=== PATIENT | male | born 1930 | race Caucasian/White ===

== ENCOUNTER 2020-06-03 09:35 | Inpatient (IN) | payer OTHER, BC ==
[2020-06-03] MEDS ORDERED: SODIUM CHLORIDE 0.9% 500 ML INFUS.BAG IV ONE (10:43)
[2020-06-03 11:32] LABS: BASO % 0.4 % (0-2.0); EOS % 0.2 % (0-4.5); HEMATOCRIT 46.8 % (35.4-49); MCH 33.7 pg (25.7-33.7); MCHC 34.2 g/dl (32.0-35.9); MEAN CELL VOLUME 98.4 fl (80-96); MEAN PLT VOLUME 8.8 fl (7.5-11.1); MONO % 6.7 % (3.8-10.2); NEUT % 86.7 % (42.8-82.8); PLATELET COUNT 247 K/MM3 (134-434); RBC 4.76 M/mm3 (4.00-5.60); RDW 15.5 % (11.9-15.9); WHITE BLOOD COUNT 13.2 K/mm3 (4.0-10.0)
[2020-06-03 11:58] LABS: CHLORIDE 96 mmol/L (98-107); POTASSIUM 4.7 mmol/L (3.5-5.1); SODIUM 131 mmol/L (136-145)
[2020-06-03 12:00] LABS: CALCIUM 9.7 mg/dL (8.5-10.1)
[2020-06-03 12:01] LABS: ANION GAP 5 MMOL/L (8-16); BLOOD UREA NITROGEN 31.7 mg/dL (7-18); CO2 31 mmol/L (21-32); GLUCOSE,RANDOM 167 mg/dL (74-106); MAGNESIUM 1.9 mg/dL (1.8-2.4)
[2020-06-03 12:04] LABS: CREATININE 1.4 mg/dL (0.55-1.3); SGOT/AST 16 U/L (15-37); SGPT/ALT 34 U/L (13-61)
[2020-06-03 12:06] LABS: BILIRUBIN,TOTAL 1.3 mg/dL (0.2-1); TOT PROT 7.4 g/dl (6.4-8.2)
[2020-06-03 12:07] LABS: ALK PHOS 74 U/L (45-117)
[2020-06-03 15:31] LABS: PH,URINE 5.5 (5.0-8.0); URINE APPEARANCE CLEAR; URINE BILIRUBIN NEGATIVE (NEGATIVE); URINE COLOR YELLOW; URINE GLUCOSE (UA) NEGATIVE (NEGATIVE); URINE KETONE NEGATIVE (NEGATIVE); URINE LEUK ESTERASE NEGATIVE (NEGATIVE); URINE NITRITE NEGATIVE (NEGATIVE); URINE PROTEIN NEGATIVE (NEGATIVE)
[2020-06-03] MEDS ORDERED: ALBUTEROL SO4 HFA INHALER IH PRN (18:29)
[2020-06-03] MEDS: ATORVASTATIN CA 40 MG TABLET (FP) PO SCH (22:33)
[2020-06-03] MEDS: INSULIN SLIDING SCALE (NOVOLOG) 1 VIAL SQ SCH (22:35)
[2020-06-04] MEDS: INSULIN SLIDING SCALE (NOVOLOG) 1 VIAL SQ SCH ×4 (06:07→21:16)
[2020-06-04 08:20] LABS: POTASSIUM 3.9 mmol/L (3.5-5.1)
[2020-06-04 08:24] LABS: BASO % 0.7 % (0-2.0); EOS % 1.8 % (0-4.5); HEMATOCRIT 42.1 % (35.4-49); HEMOGLOBIN 14.5 GM/dL (11.7-16.9); LYMPH % 9.1 % (8-40); MCH 33.5 pg (25.7-33.7); MCHC 34.4 g/dl (32.0-35.9); MEAN CELL VOLUME 97.2 fl (80-96); MEAN PLT VOLUME 8.6 fl (7.5-11.1); MONO % 8.4 % (3.8-10.2); PLATELET COUNT 198 K/MM3 (134-434); RBC 4.33 M/mm3 (4.00-5.60); RDW 15.4 % (11.9-15.9); WHITE BLOOD COUNT 11.7 K/mm3 (4.0-10.0)
[2020-06-04 08:25] LABS: BLOOD UREA NITROGEN 25.8 mg/dL (7-18); MAGNESIUM 1.9 mg/dL (1.8-2.4)
[2020-06-04] MEDS: metoPROLOL SUCCINATE 25 MG TAB.SR.24H (FP) PO SCH (11:42)
[2020-06-04] MEDS: MULTIVITAMINS THER W-MINERALS COMBO TABLET (FP) PO SCH (11:42)
[2020-06-04] MEDS: CHOLECALCIFEROL (VIT D3) 1,000 UNIT (25 MCG) TABLET PO SCH (11:42)
[2020-06-04 13:26] LABS: INR 1.02 (0.83-1.09); PROTHROMBIN TIME (PATIENT) 12.3 SEC (9.7-13.0)
[2020-06-04 13:29] LABS: ACTIVATED PTT 26.9 SECONDS (25.2-36.5)
[2020-06-04] MEDS ORDERED: PCA PUMP NR ONE (14:52)
[2020-06-04] MEDS: SODIUM CHLORIDE 1,000 ML IV SCH (17:18)
[2020-06-04] MEDS: ATORVASTATIN CA 40 MG TABLET (FP) PO SCH (21:14)
[2020-06-05] MEDS ORDERED: HALOPERIDOL 2 MG TABLET PO ONE (01:14)
[2020-06-05] MEDS: SODIUM CHLORIDE 1,000 ML IV SCH (05:58)
[2020-06-05] MEDS: INSULIN SLIDING SCALE (NOVOLOG) 1 VIAL SQ SCH ×3 (06:41→17:44)
[2020-06-05 07:50] LABS: BASO % 0.8 % (0-2.0); EOS % 2.3 % (0-4.5); HEMATOCRIT 40.9 % (35.4-49); HEMOGLOBIN 14.2 GM/dL (11.7-16.9); LYMPH % 8.6 % (8-40); MCH 33.8 pg (25.7-33.7); MCHC 34.7 g/dl (32.0-35.9); MEAN CELL VOLUME 97.6 fl (80-96); MEAN PLT VOLUME 8.4 fl (7.5-11.1); MONO % 8.3 % (3.8-10.2); PLATELET COUNT 189 K/MM3 (134-434); RBC 4.19 M/mm3 (4.00-5.60); RDW 15.1 % (11.9-15.9); WHITE BLOOD COUNT 11.3 K/mm3 (4.0-10.0)
[2020-06-05 08:07] LABS: POTASSIUM 4.5 mmol/L (3.5-5.1)
[2020-06-05 08:22] LABS: CALCIUM 8.5 mg/dL (8.5-10.1)
[2020-06-05 08:23] LABS: BLOOD UREA NITROGEN 22.2 mg/dL (7-18)
[2020-06-05 08:26] LABS: PHOSPHOROUS 2.7 mg/dL (2.5-4.9)
[2020-06-05] MEDS: CHOLECALCIFEROL (VIT D3) 1,000 UNIT (25 MCG) TABLET PO SCH (09:14)
[2020-06-05] MEDS: MULTIVITAMINS THER W-MINERALS COMBO TABLET (FP) PO SCH (09:14)
[2020-06-05] MEDS ORDERED: PT OWN MED DRAWER 7, Y5N ONE (09:30)
[2020-06-05] MEDS: metoPROLOL SUCCINATE 25 MG TAB.SR.24H (FP) PO SCH (10:03)
[2020-06-05] MEDS: traMADol HCL 50 MG TABLET PO PRN (17:57)
[2020-06-05] MEDS ORDERED: RIVAROXABAN 20 MG TABLET PO SCH (18:00)
[2020-06-05 19:10] VITALS: BMI 26.4
[2020-06-05] MEDS: ATORVASTATIN CA 40 MG TABLET (FP) PO SCH (21:18)
[2020-06-05] MEDS: ACETAMINOPHEN 325 MG TABLET (FP) PO PRN (21:19)
[2020-06-05] MEDS: HEPARIN NA (PORCINE) 5,000 UNITS/ML 1ML VIAL SQ SCH (21:19)
[2020-06-05] MEDS ORDERED: MELATONIN 5 MG TABLETS PO ONE (23:06)
[2020-06-06] MEDS: HEPARIN NA (PORCINE) 5,000 UNITS/ML 1ML VIAL SQ SCH (05:58)
[2020-06-06] MEDS: INSULIN SLIDING SCALE (NOVOLOG) 1 VIAL SQ SCH ×3 (06:01→16:30)
[2020-06-06 08:24] LABS: BASO % 0.8 % (0-2.0); EOS % 2.1 % (0-4.5); HEMATOCRIT 40.8 % (35.4-49); MCH 33.9 pg (25.7-33.7); MCHC 34.2 g/dl (32.0-35.9); MEAN CELL VOLUME 99.1 fl (80-96); MEAN PLT VOLUME 8.9 fl (7.5-11.1); NEUT % 79.1 % (42.8-82.8); PLATELET COUNT 184 K/MM3 (134-434); RBC 4.12 M/mm3 (4.00-5.60); RDW 15.3 % (11.9-15.9); WHITE BLOOD COUNT 9.7 K/mm3 (4.0-10.0)
[2020-06-06 08:27] LABS: POTASSIUM 4.5 mmol/L (3.5-5.1)
[2020-06-06 08:41] LABS: BLOOD UREA NITROGEN 23.6 mg/dL (7-18); CALCIUM 8.6 mg/dL (8.5-10.1); MAGNESIUM 2.1 mg/dL (1.8-2.4)
[2020-06-06 08:44] LABS: CREATININE 0.9 mg/dL (0.55-1.3)
[2020-06-06 08:45] LABS: PHOSPHOROUS 2.9 mg/dL (2.5-4.9)
[2020-06-06] MEDS: MULTIVITAMINS THER W-MINERALS COMBO TABLET (FP) PO SCH (09:18)
[2020-06-06] MEDS: CHOLECALCIFEROL (VIT D3) 1,000 UNIT (25 MCG) TABLET PO SCH (09:18)
[2020-06-06] MEDS: metoPROLOL SUCCINATE 25 MG TAB.SR.24H (FP) PO SCH (09:18)
[2020-06-06] MEDS: LOSARTAN POTASSIUM 50 MG TABLET PO SCH (09:19)
[2020-06-06] MEDS: DOCUSATE SODIUM 100 MG CAPSULE (FP) PO SCH (15:02)
[2020-06-06] MEDS: RIVAROXABAN 20 MG TABLET PO SCH (19:11)
[2020-06-06] MEDS: MELATONIN 5 MG TABLETS PO PRN (21:45)
[2020-06-06] MEDS: ATORVASTATIN CA 40 MG TABLET (FP) PO SCH (21:45)
[2020-06-07] MEDS: INSULIN SLIDING SCALE (NOVOLOG) 1 VIAL SQ SCH ×3 (06:08→17:39)
[2020-06-07] MEDS: MULTIVITAMINS THER W-MINERALS COMBO TABLET (FP) PO SCH (09:01)
[2020-06-07] MEDS: metoPROLOL SUCCINATE 25 MG TAB.SR.24H (FP) PO SCH (09:01)
[2020-06-07] MEDS: LOSARTAN POTASSIUM 50 MG TABLET PO SCH (09:01)
[2020-06-07] MEDS: DOCUSATE SODIUM 100 MG CAPSULE (FP) PO SCH (09:02)
[2020-06-07] MEDS: CHOLECALCIFEROL (VIT D3) 1,000 UNIT (25 MCG) TABLET PO SCH (09:02)
[2020-06-07] MEDS: ACETAMINOPHEN 325 MG TABLET (FP) PO PRN (09:02)
[2020-06-07] MEDS: traMADol HCL 50 MG TABLET PO PRN (13:50)
[2020-06-07] MEDS: RIVAROXABAN 20 MG TABLET PO SCH (17:39)
[2020-06-07] MEDS: ATORVASTATIN CA 40 MG TABLET (FP) PO SCH (21:01)
[2020-06-07] MEDS: MELATONIN 5 MG TABLETS PO PRN (21:01)
[2020-06-08] MEDS: INSULIN SLIDING SCALE (NOVOLOG) 1 VIAL SQ SCH ×3 (06:03→16:54)
[2020-06-08] MEDS: ACETAMINOPHEN 325 MG TABLET (FP) PO PRN ×2 (09:47→21:23)
[2020-06-08] MEDS: DOCUSATE SODIUM 100 MG CAPSULE (FP) PO SCH (09:48)
[2020-06-08] MEDS: metoPROLOL SUCCINATE 25 MG TAB.SR.24H (FP) PO SCH (09:48)
[2020-06-08] MEDS: CHOLECALCIFEROL (VIT D3) 1,000 UNIT (25 MCG) TABLET PO SCH (09:48)
[2020-06-08] MEDS: LOSARTAN POTASSIUM 50 MG TABLET PO SCH (09:48)
[2020-06-08] MEDS: MULTIVITAMINS THER W-MINERALS COMBO TABLET (FP) PO SCH (09:48)
[2020-06-08] MEDS ORDERED: INSULIN (NOVOLOG) ASPART 100 UNITS/ML 10ML VIAL ONE (11:00)
[2020-06-08] MEDS ORDERED: SODIUM PHOSPHATE/NA BIPHOS 133 ML ENEMA PR ONE (11:39)
[2020-06-08] MEDS: traMADol HCL 50 MG TABLET PO PRN (15:20)
[2020-06-08] MEDS: RIVAROXABAN 20 MG TABLET PO SCH (17:33)
[2020-06-08] MEDS: ATORVASTATIN CA 40 MG TABLET (FP) PO SCH (21:24)
[2020-06-09] MEDS: MELATONIN 5 MG TABLETS PO PRN ×2 (02:02→23:28)
[2020-06-09] MEDS: INSULIN SLIDING SCALE (NOVOLOG) 1 VIAL SQ SCH ×3 (06:31→17:19)
[2020-06-09 08:51] LABS: HEMATOCRIT 44.5 % (35.4-49); HEMOGLOBIN 15.1 GM/dL (11.7-16.9); MCH 33.6 pg (25.7-33.7); MEAN CELL VOLUME 98.9 fl (80-96); MEAN PLT VOLUME 8.7 fl (7.5-11.1); PLATELET COUNT 207 K/MM3 (134-434); RBC 4.49 M/mm3 (4.00-5.60); RDW 15.2 % (11.9-15.9); WHITE BLOOD COUNT 11.2 K/mm3 (4.0-10.0)
[2020-06-09 08:58] LABS: POTASSIUM 4.7 mmol/L (3.5-5.1)
[2020-06-09 09:01] LABS: BLOOD UREA NITROGEN 14.2 mg/dL (7-18); CALCIUM 9.4 mg/dL (8.5-10.1); MAGNESIUM 2.2 mg/dL (1.8-2.4)
[2020-06-09 09:05] LABS: CREATININE 0.8 mg/dL (0.55-1.3)
[2020-06-09] MEDS: metoPROLOL SUCCINATE 25 MG TAB.SR.24H (FP) PO SCH (09:22)
[2020-06-09] MEDS: ACETAMINOPHEN 325 MG TABLET (FP) PO PRN (09:22)
[2020-06-09] MEDS: LOSARTAN POTASSIUM 50 MG TABLET PO SCH (09:22)
[2020-06-09] MEDS: MULTIVITAMINS THER W-MINERALS COMBO TABLET (FP) PO SCH (09:23)
[2020-06-09] MEDS: DOCUSATE SODIUM 100 MG CAPSULE (FP) PO SCH (09:23)
[2020-06-09] MEDS: CHOLECALCIFEROL (VIT D3) 1,000 UNIT (25 MCG) TABLET PO SCH (09:23)
[2020-06-09] MEDS: TAMSULOSIN HCL 0.4 MG CAP PO SCH (09:23)
[2020-06-09] MEDS ORDERED: traMADol HCL 50 MG TABLET PO ONE (10:00)
[2020-06-09] MEDS: oxyCODONE HCL 5 MG TABLET PO PRN (12:06)
[2020-06-09] MEDS: GABAPENTIN 100 MG CAPSULE PO PRN (12:06)
[2020-06-09] MEDS: RIVAROXABAN 20 MG TABLET PO SCH (17:36)
[2020-06-09] MEDS: SENNOSIDES 8.6MG TABLET (FP) PO SCH (22:46)
[2020-06-09] MEDS: ATORVASTATIN CA 40 MG TABLET (FP) PO SCH (22:46)
[2020-06-10] MEDS: oxyCODONE HCL 5 MG TABLET PO PRN ×2 (02:01→09:23)
[2020-06-10] MEDS: GABAPENTIN 100 MG CAPSULE PO PRN ×2 (02:01→09:23)
[2020-06-10] MEDS: INSULIN SLIDING SCALE (NOVOLOG) 1 VIAL SQ SCH ×3 (06:31→16:34)
[2020-06-10 07:59] LABS: BASO % 0.8 % (0-2.0); EOS % 1.5 % (0-4.5); LYMPH % 7.8 % (8-40); MCH 33.7 pg (25.7-33.7); MCHC 34.9 g/dl (32.0-35.9); MEAN CELL VOLUME 96.7 fl (80-96); MEAN PLT VOLUME 8.4 fl (7.5-11.1); MONO % 6.2 % (3.8-10.2); NEUT % 83.7 % (42.8-82.8); PLATELET COUNT 187 K/MM3 (134-434); RBC 4.14 M/mm3 (4.00-5.60); RDW 14.7 % (11.9-15.9); WHITE BLOOD COUNT 11.4 K/mm3 (4.0-10.0)
[2020-06-10 08:19] LABS: POTASSIUM 4.2 mmol/L (3.5-5.1)
[2020-06-10 08:24] LABS: BLOOD UREA NITROGEN 13.3 mg/dL (7-18); CALCIUM 8.8 mg/dL (8.5-10.1)
[2020-06-10 08:28] LABS: CREATININE 0.8 mg/dL (0.55-1.3)
[2020-06-10] MEDS: metoPROLOL SUCCINATE 25 MG TAB.SR.24H (FP) PO SCH (09:23)
[2020-06-10] MEDS: SENNOSIDES 8.6MG TABLET (FP) PO SCH ×2 (09:23→21:53)
[2020-06-10] MEDS: LOSARTAN POTASSIUM 50 MG TABLET PO SCH (09:23)
[2020-06-10] MEDS: MULTIVITAMINS THER W-MINERALS COMBO TABLET (FP) PO SCH (09:23)
[2020-06-10] MEDS: DOCUSATE SODIUM 100 MG CAPSULE (FP) PO SCH (09:23)
[2020-06-10] MEDS: TAMSULOSIN HCL 0.4 MG CAP PO SCH (09:23)
[2020-06-10] MEDS: CHOLECALCIFEROL (VIT D3) 1,000 UNIT (25 MCG) TABLET PO SCH (09:23)
[2020-06-10] MEDS: ACETAMINOPHEN 325 MG TABLET (FP) PO PRN ×2 (13:52→21:52)
[2020-06-10] MEDS ORDERED: SODIUM CHLORIDE 1,000 ML IV SCH (14:00)
[2020-06-10] MEDS ORDERED: diphenhydrAMINE HCL 25 MG CAPSULE (FP) PO PRN (16:16)
[2020-06-10] MEDS: LIDOCAINE 5% TOPICAL PATCH TP SCH (16:34)
[2020-06-10] MEDS: RIVAROXABAN 20 MG TABLET PO SCH (17:31)
[2020-06-10] MEDS: GABAPENTIN 100 MG CAPSULE PO SCH (21:52)
[2020-06-10] MEDS: ATORVASTATIN CA 40 MG TABLET (FP) PO SCH (21:52)
[2020-06-10] MEDS: LIDOCAINE PATCH REMOVAL MC SCH (21:57)
[2020-06-11] MEDS: oxyCODONE HCL 5 MG TABLET PO PRN (04:08)
[2020-06-11] MEDS: INSULIN SLIDING SCALE (NOVOLOG) 1 VIAL SQ SCH ×3 (06:50→17:01)
[2020-06-11 07:46] LABS: BASO % 1.1 % (0-2.0); EOS % 2.3 % (0-4.5); HEMATOCRIT 41.1 % (35.4-49); HEMOGLOBIN 14.5 GM/dL (11.7-16.9); LYMPH % 9.5 % (8-40); MCH 33.8 pg (25.7-33.7); MCHC 35.2 g/dl (32.0-35.9); MEAN CELL VOLUME 95.9 fl (80-96); MEAN PLT VOLUME 8.4 fl (7.5-11.1); MONO % 8.3 % (3.8-10.2); NEUT % 78.8 % (42.8-82.8); PLATELET COUNT 211 K/MM3 (134-434); RBC 4.29 M/mm3 (4.00-5.60); RDW 14.9 % (11.9-15.9); WHITE BLOOD COUNT 10.6 K/mm3 (4.0-10.0)
[2020-06-11 08:01] LABS: POTASSIUM 4.4 mmol/L (3.5-5.1)
[2020-06-11 08:03] LABS: CALCIUM 8.8 mg/dL (8.5-10.1)
[2020-06-11 08:04] LABS: BLOOD UREA NITROGEN 13.9 mg/dL (7-18)
[2020-06-11 08:07] LABS: CREATININE 0.9 mg/dL (0.55-1.3)
[2020-06-11] MEDS ORDERED: SODIUM PHOSPHATE/NA BIPHOS 133 ML ENEMA PR ONE (08:52)
[2020-06-11] MEDS: LIDOCAINE 5% TOPICAL PATCH TP SCH (10:08)
[2020-06-11] MEDS: GABAPENTIN 100 MG CAPSULE PO SCH ×2 (10:12→21:10)
[2020-06-11] MEDS: CHOLECALCIFEROL (VIT D3) 1,000 UNIT (25 MCG) TABLET PO SCH (10:13)
[2020-06-11] MEDS: TAMSULOSIN HCL 0.4 MG CAP PO SCH (10:13)
[2020-06-11] MEDS: ACETAMINOPHEN 325 MG TABLET (FP) PO PRN ×2 (10:13→17:37)
[2020-06-11] MEDS: metoPROLOL SUCCINATE 25 MG TAB.SR.24H (FP) PO SCH (10:13)
[2020-06-11] MEDS: MULTIVITAMINS THER W-MINERALS COMBO TABLET (FP) PO SCH (10:13)
[2020-06-11] MEDS: LOSARTAN POTASSIUM 50 MG TABLET PO SCH (10:15)
[2020-06-11] MEDS: DOCUSATE SODIUM 100 MG CAPSULE (FP) PO SCH (10:15)
[2020-06-11] MEDS: SENNOSIDES 8.6MG TABLET (FP) PO SCH ×2 (10:15→21:10)
[2020-06-11] MEDS: METHYL SALICYLATE/MENTHOL OINT 30 GM TUBE TP SCH ×2 (11:48→21:10)
[2020-06-11] MEDS: SODIUM CHLORIDE 1,000 ML IV SCH (17:37)
[2020-06-11] MEDS: RIVAROXABAN 20 MG TABLET PO SCH (17:38)
[2020-06-11] MEDS ORDERED: INSULIN (NOVOLOG) ASPART 100 UNITS/ML 10ML VIAL ONE (20:56)
[2020-06-11] MEDS: ATORVASTATIN CA 40 MG TABLET (FP) PO SCH (21:10)
[2020-06-11] MEDS: LIDOCAINE PATCH REMOVAL MC SCH (21:12)
[2020-06-12] MEDS: oxyCODONE HCL 5 MG TABLET PO PRN ×2 (04:11→08:22)
[2020-06-12] MEDS: INSULIN SLIDING SCALE (NOVOLOG) 1 VIAL SQ SCH ×3 (06:12→17:17)
[2020-06-12] MEDS: SODIUM CHLORIDE 1,000 ML IV SCH (06:57)
[2020-06-12 08:04] LABS: BASO % 1.1 % (0-2.0); EOS % 1.6 % (0-4.5); HEMATOCRIT 39.1 % (35.4-49); HEMOGLOBIN 13.6 GM/dL (11.7-16.9); LYMPH % 8.5 % (8-40); MCH 33.6 pg (25.7-33.7); MCHC 34.8 g/dl (32.0-35.9); MEAN CELL VOLUME 96.5 fl (80-96); MEAN PLT VOLUME 8.5 fl (7.5-11.1); MONO % 8.2 % (3.8-10.2); NEUT % 80.6 % (42.8-82.8); PLATELET COUNT 189 K/MM3 (134-434); RBC 4.06 M/mm3 (4.00-5.60); RDW 14.5 % (11.9-15.9); WHITE BLOOD COUNT 10.6 K/mm3 (4.0-10.0)
[2020-06-12] MEDS: ACETAMINOPHEN 325 MG TABLET (FP) PO PRN (08:23)
[2020-06-12 08:24] LABS: POTASSIUM 4.1 mmol/L (3.5-5.1)
[2020-06-12 08:26] LABS: CALCIUM 8.3 mg/dL (8.5-10.1)
[2020-06-12 08:28] LABS: BLOOD UREA NITROGEN 12.2 mg/dL (7-18)
[2020-06-12 08:31] LABS: BILIRUBIN,TOTAL 0.8 mg/dL (0.2-1); CREATININE 0.7 mg/dL (0.55-1.3)
[2020-06-12 08:33] LABS: TOT PROT 5.9 g/dl (6.4-8.2)
[2020-06-12] MEDS: LIDOCAINE 5% TOPICAL PATCH TP SCH (10:26)
[2020-06-12] MEDS: TAMSULOSIN HCL 0.4 MG CAP PO SCH (10:28)
[2020-06-12] MEDS: metoPROLOL SUCCINATE 25 MG TAB.SR.24H (FP) PO SCH (10:28)
[2020-06-12] MEDS: CHOLECALCIFEROL (VIT D3) 1,000 UNIT (25 MCG) TABLET PO SCH (10:28)
[2020-06-12] MEDS: GABAPENTIN 100 MG CAPSULE PO SCH (10:28)
[2020-06-12] MEDS: MULTIVITAMINS THER W-MINERALS COMBO TABLET (FP) PO SCH (10:28)
[2020-06-12] MEDS: SENNOSIDES 8.6MG TABLET (FP) PO SCH (10:29)
[2020-06-12] MEDS: LOSARTAN POTASSIUM 50 MG TABLET PO SCH (10:29)
[2020-06-12] MEDS: METHYL SALICYLATE/MENTHOL OINT 30 GM TUBE TP SCH (10:29)
[2020-06-12] MEDS: DOCUSATE SODIUM 100 MG CAPSULE (FP) PO SCH (10:30)
[2020-06-12] MEDS ORDERED: INSULIN (NOVOLOG) ASPART 100 UNITS/ML 10ML VIAL ONE (11:54)
[2020-06-12] MEDS: RIVAROXABAN 20 MG TABLET PO SCH (17:18)
[2020-06-12 20:12] VITALS: BP 148/70; PULSE 75; TEMP 98.1
== END 2020-06-12 20:13 | disposition home or self-care (01) | DRG 180 ==
LOC: JER 09:35 → JERBED 16:40 → J7W 21:26
PROVIDERS: ATTEND Internal Medicine
PROC: 0BBC3ZX Excision of Right Upper Lung Lobe, Percutaneous Approach, Diagnostic (ICD-10-PCS; principal; 2020-06-05)
PROC: 0W9930Z Drainage of Right Pleural Cavity with Drainage Device, Percutaneous Approach (ICD-10-PCS; 2020-06-05)
DX: C34.11 Malignant neoplasm of upper lobe, right bronchus or lung (principal); E43 Unspecified severe protein-calorie malnutrition; N17.9 Acute kidney failure, unspecified; J95.811 Postprocedural pneumothorax; I87.1 Compression of vein; E87.1 Hypo-osmolality and hyponatremia; G90.2 Horner's syndrome; J43.9 Emphysema, unspecified; R63.0 Anorexia; R63.4 Abnormal weight loss; I48.0 Paroxysmal atrial fibrillation; I10 Essential (primary) hypertension; E78.5 Hyperlipidemia, unspecified; E11.9 Type 2 diabetes mellitus without complications; I73.9 Peripheral vascular disease, unspecified; K42.9 Umbilical hernia without obstruction or gangrene; I71.4 Abdominal aortic aneurysm, without rupture; N40.0 Benign prostatic hyperplasia without lower urinary tract symptoms; K59.00 Constipation, unspecified; G47.00 Insomnia, unspecified; R09.02 Hypoxemia; Y83.9 Surgical procedure, unspecified as the cause of abnormal reaction of the patient, or of later complication, without mention of misadventure at the time of the procedure; D72.829 Elevated white blood cell count, unspecified
CPT/HCPCS: 32408; 32557; 36415; 70450-TC; 70553-TC; 71045-TC-FY; 71046-TC-FY; 71250-TC; 71275-TC; 74177-TC; 77012-TC; 80048; 80053; 81003; 82436; 82550; 82962; 83036; 83735; 83930; 83935; 84100; 84133; 84153; 84300; 84443; 84484; 85025; 85027; 85610; 85730; 88305-TC; 88341-TC; 93005; 93010; 93306-TC; 93971; 94761; 97116-GP; 97161-GP; 99285-25; A9579; C9803; J1644; Q9967; U0003

== ENCOUNTER 2020-06-17 04:37 | Day surgery (SDC) | payer OTHER, BC ==
[2020-06-16 10:07] VITALS: BMI 26.6
[2020-06-17] MEDS ORDERED: ceFAZolin SODIUM 1 GM VIAL ONE (14:21)
[2020-06-17] MEDS ORDERED: PROPOFOL 20 ML ONE ×2 (14:21→14:52)
[2020-06-17] MEDS ORDERED: ceFAZolin 2 GRAM PREMIX BAG IVPB ONE (14:22)
[2020-06-17] MEDS ORDERED: ONDANSETRON 4 MG/2 ML VIAL IVPUSH PRN (14:29)
[2020-06-17] MEDS ORDERED: LIDOCAINE HCL 1%, 10 MG/ML (50 mL VIAL) INF ONE ×2 (14:37)
[2020-06-17 17:36] VITALS: BP 126/69; PULSE 81; TEMP 96.6
== END 2020-06-17 17:35 | disposition home or self-care (01) ==
LOC: JASU-SURG 04:37
PROVIDERS: ATTEND Surgery Vascular Surgery
PROC: B548ZZA Ultrasonography of Superior Vena Cava, Guidance (ICD-10-PCS; 2020-06-17)
PROC: 02HV33Z Insertion of Infusion Device into Superior Vena Cava, Percutaneous Approach (ICD-10-PCS; principal; 2020-06-17 15:00)
DX: C34.90 Malignant neoplasm of unspecified part of unspecified bronchus or lung (principal); E11.9 Type 2 diabetes mellitus without complications; I10 Essential (primary) hypertension
CPT/HCPCS: 36561; C1788; 71045-TC-FY; 94760; J1644

== ENCOUNTER 2020-06-24 08:22 | Day surgery (SDC) | payer OTHER, BC ==
[2020-06-24] MEDS ORDERED: SODIUM CHLORIDE 1,000 ML IV ONE (09:30)
[2020-06-24] MEDS ORDERED: DEXAMETHASONE SODIUM PHOSPHATE 10 MG, DIPHENHYDRAMINE 25 MG in SODIUM CHLORIDE 100 ML IVPB ONE (09:30)
[2020-06-24 09:34] LABS: BASO % 0.2 % (0-2.0); EOS % 1.1 % (0-4.5); HEMATOCRIT 38.3 % (35.4-49); HEMOGLOBIN 13.3 GM/dL (11.7-16.9); LYMPH % 7.2 % (8-40); MCHC 34.7 g/dl (32.0-35.9); MEAN PLT VOLUME 8.3 fl (7.5-11.1); NEUT % 85.5 % (42.8-82.8); PLATELET COUNT 194 K/MM3 (134-434); RBC 3.91 M/mm3 (4.00-5.60); RDW 15.5 % (11.9-15.9); WHITE BLOOD COUNT 10.2 K/mm3 (4.0-10.0)
[2020-06-24 09:39] LABS: INR 2.65 (0.83-1.09); PROTHROMBIN TIME (PATIENT) 31.2 SEC (9.7-13.0)
[2020-06-24 09:41] LABS: ACTIVATED PTT 55.1 SECONDS (25.2-36.5)
[2020-06-24] MEDS ORDERED: PALONOSETRON HCL 0.25 MG/5 ML VIAL IVPUSH ONE (10:00)
[2020-06-24] MEDS ORDERED: DEXAMETHASONE SODIUM PHOSPHATE 10 MG, DIPHENHYDRAMINE 50 MG in SODIUM CHLORIDE 100 ML IVPB ONE (10:00)
[2020-06-24] MEDS ORDERED: FAMOTIDINE 20 MG/50 ML IVPB 20 MG/50 ML MG IVPB ONE (10:00)
[2020-06-24] MEDS ORDERED: PACLITAXEL 90 MG in SODIUM CHLORIDE 250 ML IVPB ONE (10:30)
[2020-06-24 10:34] LABS: ALBUMIN 3.2 g/dl (3.4-5.0); BILIRUBIN,TOTAL 0.7 mg/dL (0.2-1); BLOOD UREA NITROGEN 22.3 mg/dL (7-18); CALCIUM 9.4 mg/dL (8.5-10.1); CREATININE 0.9 mg/dL (0.55-1.3); MAGNESIUM 2.1 mg/dL (1.8-2.4); POTASSIUM 4.1 mmol/L (3.5-5.1); TOT PROT 6.4 g/dl (6.4-8.2)
[2020-06-24] MEDS ORDERED: CARBOPLATIN IVPB ONE ×2 (11:00→12:15)
[2020-06-24] MEDS ORDERED: SODIUM CHLORIDE IVPB ONE ×2 (11:00→12:15)
[2020-06-24] MEDS ORDERED: ACETAMINOPHEN 325 MG TABLET (FP) PO ONE (12:30)
[2020-06-24 17:24] VITALS: BP 118/60; PULSE 77; TEMP 98.3
[2020-06-24] MEDS ORDERED: PORTA CATH FLUSH 10 ML IVPUSH ONE (17:24)
== END 2020-06-24 15:00 | disposition home or self-care (01) ==
LOC: JONCCHEMO 08:22
PROVIDERS: ATTEND Internal Medicine Hematology & Oncology
DX: Z51.11 Encounter for antineoplastic chemotherapy (principal); C34.90 Malignant neoplasm of unspecified part of unspecified bronchus or lung
CPT/HCPCS: 36415; 80053; 83735; 85025; 85610; 85730; 96361; 96367; 96375; 96413; 96415; 96417; J2469

== ENCOUNTER 2020-07-03 07:07 | Day surgery (SDC) | payer OTHER, BC ==
[2020-07-03] MEDS ORDERED: PALONOSETRON HCL 0.25 MG/5 ML VIAL IVPUSH ONE (10:00)
[2020-07-03] MEDS ORDERED: DEXAMETHASONE SODIUM PHOSPHATE 10 MG, DIPHENHYDRAMINE 50 MG in SODIUM CHLORIDE 100 ML IVPB ONE (10:00)
[2020-07-03] MEDS ORDERED: FAMOTIDINE 20 MG/50 ML IVPB 20 MG/50 ML MG IVPB ONE (10:00)
[2020-07-03] MEDS ORDERED: PACLITAXEL 90 MG in SODIUM CHLORIDE 250 ML IVPB ONE (10:30)
[2020-07-03 10:55] LABS: BASO % 1.2 % (0-2.0); EOS % 1.6 % (0-4.5); HEMOGLOBIN 12.1 GM/dL (11.7-16.9); LYMPH % 8.3 % (8-40); MCH 33.2 pg (25.7-33.7); MCHC 33.6 g/dl (32.0-35.9); MEAN CELL VOLUME 98.7 fl (80-96); MEAN PLT VOLUME 8.6 fl (7.5-11.1); MONO % 8.5 % (3.8-10.2); NEUT % 80.4 % (42.8-82.8); PLATELET COUNT 205 K/MM3 (134-434); RBC 3.65 M/mm3 (4.00-5.60); RDW 15.8 % (11.9-15.9); WHITE BLOOD COUNT 6.2 K/mm3 (4.0-10.0)
[2020-07-03] MEDS ORDERED: DEXAMETHASONE SOD PHOSPHATE 10 MG/1 ML VIAL IVPB ONE (11:10)
[2020-07-03 11:12] LABS: POTASSIUM 4.5 mmol/L (3.5-5.1)
[2020-07-03 11:15] LABS: ALBUMIN 2.8 g/dl (3.4-5.0); CALCIUM 10.2 mg/dL (8.5-10.1)
[2020-07-03 11:20] LABS: BILIRUBIN,TOTAL 0.8 mg/dL (0.2-1); TOT PROT 6.1 g/dl (6.4-8.2)
[2020-07-03] MEDS ORDERED: SODIUM CHLORIDE 500 ML IV STA (11:24)
[2020-07-03] MEDS ORDERED: SODIUM CHLORIDE 500 ML IV ONE (11:25)
[2020-07-03] MEDS ORDERED: CARBOPLATIN IVPB ONE (11:30)
[2020-07-03] MEDS ORDERED: DEXAMETHASONE SODIUM PHOSPHATE 10 MG, DIPHENHYDRAMINE 25 MG in SODIUM CHLORIDE 100 ML IVPB ONE (11:30)
[2020-07-03] MEDS ORDERED: SODIUM CHLORIDE IVPB ONE (11:30)
[2020-07-03] MEDS ORDERED: DEXAMETHASONE SODIUM PHOSPHATE 10 MG in SODIUM CHLORIDE 50 ML IVPB ONE (11:33)
[2020-07-03 17:53] VITALS: BP 120/73; PULSE 75; TEMP 98
[2020-07-03] MEDS ORDERED: PORTA CATH FLUSH 10 ML IVPUSH ONE (17:53)
== END 2020-07-03 15:45 | disposition home or self-care (01) ==
LOC: JONCCHEMO 07:07
PROVIDERS: ATTEND Internal Medicine Hematology & Oncology
DX: Z51.11 Encounter for antineoplastic chemotherapy (principal); C34.90 Malignant neoplasm of unspecified part of unspecified bronchus or lung; E87.1 Hypo-osmolality and hyponatremia; E11.9 Type 2 diabetes mellitus without complications
CPT/HCPCS: 36415; 80053; 85025; 96361; 96367; 96375; 96413; J2469

== ENCOUNTER 2020-07-10 15:30 | Inpatient (IN) | payer OTHER, BC ==
[2020-07-10 16:24] VITALS: BMI 26.5
[2020-07-10] MEDS ORDERED: FUROSEMIDE 40 MG/4 ML INJECTABLE VIAL IVPUSH ONE (17:30)
[2020-07-10 17:35] LABS: INR 1.29 (0.83-1.09); PROTHROMBIN TIME (PATIENT) 15.7 SEC (9.7-13.0)
[2020-07-10 17:38] LABS: ACTIVATED PTT 29.3 SECONDS (25.2-36.5)
[2020-07-10 17:40] LABS: HEMATOCRIT 39.1 % (35.4-49); HEMOGLOBIN 13.4 GM/dL (11.7-16.9); MCHC 34.3 g/dl (32.0-35.9); MEAN CELL VOLUME 98.9 fl (80-96); MEAN PLT VOLUME 8.3 fl (7.5-11.1); PLATELET COUNT 247 K/MM3 (134-434); RBC 3.95 M/mm3 (4.00-5.60); RDW 16.3 % (11.9-15.9); WHITE BLOOD COUNT 6.9 K/mm3 (4.0-10.0)
[2020-07-10 17:48] LABS: CHLORIDE 102 mmol/L (98-107); SODIUM 138 mmol/L (136-145)
[2020-07-10 17:51] LABS: BLOOD UREA NITROGEN 29.7 mg/dL (7-18); CALCIUM 10.2 mg/dL (8.5-10.1)
[2020-07-10 17:52] LABS: ALBUMIN 3.2 g/dl (3.4-5.0); CO2 33 mmol/L (21-32); GLUCOSE,RANDOM 216 mg/dL (74-106); MAGNESIUM 2.2 mg/dL (1.8-2.4)
[2020-07-10 17:54] LABS: CREATININE 1.2 mg/dL (0.55-1.3); SGOT/AST 83 U/L (15-37)
[2020-07-10 17:55] LABS: PHOSPHOROUS 4.1 mg/dL (2.5-4.9)
[2020-07-10 17:56] LABS: BILIRUBIN,TOTAL 1.3 mg/dL (0.2-1); TOT PROT 7.8 g/dl (6.4-8.2)
[2020-07-10 17:57] LABS: ALK PHOS 207 U/L (45-117)
[2020-07-10 18:06] LABS: ANION GAP 3 MMOL/L (8-16); SGPT/ALT 86 U/L (13-61)
[2020-07-10] MEDS ORDERED: FUROSEMIDE 40 MG/4 ML INJECTABLE VIAL ONE (18:09)
[2020-07-10 18:10] LABS: POTASSIUM 6.9 mmol/L (3.5-5.1)
[2020-07-10 18:21] LABS: ANISOCYTOSIS 1+; MACROCYTOSIS 0; PLATELET ESTIMATE NORMAL
[2020-07-10 19:41] LABS: URINE APPEARANCE CLEAR; URINE BILIRUBIN NEGATIVE (NEGATIVE); URINE COLOR YELLOW; URINE GLUCOSE (UA) NEGATIVE (NEGATIVE); URINE KETONE NEGATIVE (NEGATIVE); URINE LEUK ESTERASE NEGATIVE (NEGATIVE); URINE NITRITE NEGATIVE (NEGATIVE); URINE PROTEIN NEGATIVE (NEGATIVE); URINE UROBILINOGEN 0.2 mg/dL (0.2-1.0)
[2020-07-10] MEDS ORDERED: oxyCODONE HCL 5 MG TABLET PO PRN (21:00)
[2020-07-10] MEDS ORDERED: GABAPENTIN 300 MG CAPSULE PO SCH (21:00)
[2020-07-10] MEDS ORDERED: GABAPENTIN 100 MG CAPSULE ONE (22:09)
[2020-07-10] MEDS ORDERED: DEXAMETHASONE 4 MG TABLET (FP) ONE (22:09)
[2020-07-10] MEDS ORDERED: MELATONIN 5 MG TABLETS ONE (22:09)
[2020-07-10] MEDS: MELATONIN 5 MG TABLETS PO SCH (22:11)
[2020-07-10] MEDS: GABAPENTIN 300 MG CAPSULE PO SCH (22:11)
[2020-07-10] MEDS: DEXAMETHASONE 4 MG TABLET (FP) PO SCH (22:11)
[2020-07-10] MEDS: LIDOCAINE PATCH REMOVAL MC SCH (22:11)
[2020-07-10 23:24] LABS: POTASSIUM 4.9 mmol/L (3.5-5.1)
[2020-07-10 23:26] LABS: CALCIUM 9.9 mg/dL (8.5-10.1)
[2020-07-10 23:27] LABS: BLOOD UREA NITROGEN 29.2 mg/dL (7-18)
[2020-07-10 23:30] LABS: CREATININE 1.2 mg/dL (0.55-1.3)
[2020-07-11] MEDS: INSULIN SLIDING SCALE (NOVOLOG) 1 VIAL SQ SCH ×4 (06:02→21:05)
[2020-07-11] MEDS: GABAPENTIN 100 MG CAPSULE PO SCH (09:32)
[2020-07-11] MEDS: PANTOPRAZOLE 40 MG TABLET PO SCH (09:32)
[2020-07-11] MEDS: metoPROLOL SUCCINATE 25 MG TAB.SR.24H (FP) PO SCH (09:33)
[2020-07-11] MEDS: TAMSULOSIN HCL 0.4 MG CAP PO SCH (09:33)
[2020-07-11] MEDS: DEXAMETHASONE 4 MG TABLET (FP) PO SCH ×2 (09:33→21:04)
[2020-07-11] MEDS: RIVAROXABAN 20 MG TABLET PO SCH (09:34)
[2020-07-11] MEDS ORDERED: RIVAROXABAN 20 MG TABLET PO SCH (10:00)
[2020-07-11] MEDS ORDERED: FLU VACCINE (FLULAVAL) PF 60 MCG/0.5 ML SYRINGE 2020-2021 IM ONE (10:00)
[2020-07-11] MEDS ORDERED: PNEUMOC 13-VAL CONJ-DIP CRM/PF 0.5 ML DISP.SYRIN IM ONE (10:00)
[2020-07-11 10:05] LABS: BASO % 0.5 % (0-2.0); EOS % 0.3 % (0-4.5); HEMATOCRIT 33.5 % (35.4-49); HEMOGLOBIN 11.5 GM/dL (11.7-16.9); LYMPH % 7.6 % (8-40); MCH 33.8 pg (25.7-33.7); MCHC 34.2 g/dl (32.0-35.9); MEAN CELL VOLUME 98.9 fl (80-96); MEAN PLT VOLUME 8.3 fl (7.5-11.1); MONO % 7.1 % (3.8-10.2); NEUT % 84.5 % (42.8-82.8); PLATELET COUNT 189 K/MM3 (134-434); RBC 3.39 M/mm3 (4.00-5.60); RDW 15.9 % (11.9-15.9); WHITE BLOOD COUNT 5.7 K/mm3 (4.0-10.0)
[2020-07-11 10:12] LABS: INR 1.02 (0.83-1.09); PROTHROMBIN TIME (PATIENT) 12.3 SEC (9.7-13.0)
[2020-07-11] MEDS ORDERED: FUROSEMIDE 40 MG/4 ML INJECTABLE VIAL IVPUSH SCH (10:30)
[2020-07-11 10:52] LABS: ALBUMIN 2.8 g/dl (3.4-5.0)
[2020-07-11 10:53] LABS: BILIRUBIN,TOTAL 1.1 mg/dL (0.2-1); BLOOD UREA NITROGEN 31.3 mg/dL (7-18)
[2020-07-11 10:54] LABS: TOT PROT 6.1 g/dl (6.4-8.2)
[2020-07-11 10:55] LABS: PHOSPHOROUS 4.5 mg/dL (2.5-4.9)
[2020-07-11 10:56] LABS: CALCIUM 9.9 mg/dL (8.5-10.1)
[2020-07-11 10:57] LABS: MAGNESIUM 2.2 mg/dL (1.8-2.4)
[2020-07-11 11:12] LABS: POTASSIUM 4.5 mmol/L (3.5-5.1)
[2020-07-11] MEDS: LIDOCAINE 5% TOPICAL PATCH TP SCH (11:28)
[2020-07-11] MEDS ORDERED: FUROSEMIDE 40 MG/4 ML INJECTABLE VIAL IVPUSH ONE (17:57)
[2020-07-11] MEDS ORDERED: INSULIN (NOVOLOG) ASPART 100 UNITS/ML 10ML VIAL ONE (20:35)
[2020-07-11] MEDS: GABAPENTIN 300 MG CAPSULE PO SCH (21:04)
[2020-07-11] MEDS: LOSARTAN POTASSIUM 50 MG TABLET PO SCH (21:05)
[2020-07-11] MEDS: LIDOCAINE PATCH REMOVAL MC SCH (21:05)
[2020-07-11] MEDS: MELATONIN 5 MG TABLETS PO SCH (21:05)
[2020-07-12] MEDS ORDERED: FUROSEMIDE 40 MG/4 ML INJECTABLE VIAL IVPUSH SCH (06:00)
[2020-07-12] MEDS: INSULIN SLIDING SCALE (NOVOLOG) 1 VIAL SQ SCH ×5 (06:28→21:28)
[2020-07-12 09:47] LABS: BASO % 0.8 % (0-2.0); EOS % 0.5 % (0-4.5); HEMATOCRIT 35.7 % (35.4-49); HEMOGLOBIN 12.3 GM/dL (11.7-16.9); LYMPH % 7.1 % (8-40); MCH 33.9 pg (25.7-33.7); MCHC 34.3 g/dl (32.0-35.9); MEAN CELL VOLUME 98.7 fl (80-96); MEAN PLT VOLUME 8.2 fl (7.5-11.1); MONO % 5.9 % (3.8-10.2); NEUT % 85.7 % (42.8-82.8); PLATELET COUNT 180 K/MM3 (134-434); RBC 3.61 M/mm3 (4.00-5.60); RDW 16.1 % (11.9-15.9); WHITE BLOOD COUNT 7.1 K/mm3 (4.0-10.0)
[2020-07-12 10:02] LABS: CHLORIDE 96 mmol/L (98-107); POTASSIUM 4.6 mmol/L (3.5-5.1); SODIUM 139 mmol/L (136-145)
[2020-07-12 10:07] LABS: ANION GAP 5 MMOL/L (8-16); BLOOD UREA NITROGEN 35.4 mg/dL (7-18); CALCIUM 9.4 mg/dL (8.5-10.1); CO2 38 mmol/L (21-32); GLUCOSE,RANDOM 154 mg/dL (74-106)
[2020-07-12 10:08] LABS: MAGNESIUM 2.1 mg/dL (1.8-2.4)
[2020-07-12 10:10] LABS: CREATININE 1.1 mg/dL (0.55-1.3); SGPT/ALT 60 U/L (13-61)
[2020-07-12 10:11] LABS: SGOT/AST 20 U/L (15-37)
[2020-07-12 10:12] LABS: BILIRUBIN,TOTAL 1.4 mg/dL (0.2-1); TOT PROT 6.4 g/dl (6.4-8.2)
[2020-07-12 10:13] LABS: ALK PHOS 155 U/L (45-117)
[2020-07-12] MEDS ORDERED: cefTRIAXone SODIUM 1 GM VIAL ONE ×2 (11:29→13:42)
[2020-07-12] MEDS ORDERED: PT OWN MED DRAWER 7, Y5N ONE (11:29)
[2020-07-12] MEDS ORDERED: DEXTROSE 5%-WATER - 50 ML IVPB ONE ×2 (11:29→13:43)
[2020-07-12] MEDS: LIDOCAINE 5% TOPICAL PATCH TP SCH (11:35)
[2020-07-12] MEDS: GABAPENTIN 100 MG CAPSULE PO SCH (11:35)
[2020-07-12] MEDS: LOSARTAN POTASSIUM 50 MG TABLET PO SCH (11:35)
[2020-07-12] MEDS: DEXAMETHASONE 4 MG TABLET (FP) PO SCH ×2 (11:36→21:22)
[2020-07-12] MEDS: PANTOPRAZOLE 40 MG TABLET PO SCH (11:36)
[2020-07-12] MEDS: FUROSEMIDE 40 MG/4 ML INJECTABLE VIAL IVPUSH SCH ×2 (11:36→13:15)
[2020-07-12] MEDS: TAMSULOSIN HCL 0.4 MG CAP PO SCH (11:36)
[2020-07-12] MEDS: metoPROLOL SUCCINATE 25 MG TAB.SR.24H (FP) PO SCH (11:37)
[2020-07-12] MEDS: RIVAROXABAN 20 MG TABLET PO SCH (11:37)
[2020-07-12] MEDS: AZITHROMYCIN IVPB 500 MG/250 ML BAG IVPB SCH (11:38)
[2020-07-12] MEDS: CEFTRIAXONE 1 GM in DEXTROSE 5%-WATER - 50 ML IVPB SCH (11:38)
[2020-07-12] MEDS ORDERED: INSULIN (NOVOLOG) ASPART 100 UNITS/ML 10ML VIAL ONE (17:17)
[2020-07-12] MEDS ORDERED: ALBUTEROL SO4 2.5/IPRATROPIUM 0.5 INH SOL 3 ML VIAL.NEB. NEB PRN (17:47)
[2020-07-12] MEDS ORDERED: SENNOSIDES 8.6MG TABLET (FP) PO PRN (17:47)
[2020-07-12] MEDS: GABAPENTIN 300 MG CAPSULE PO SCH (21:22)
[2020-07-12] MEDS: LIDOCAINE PATCH REMOVAL MC SCH (21:22)
[2020-07-12] MEDS: MELATONIN 5 MG TABLETS PO SCH (21:22)
[2020-07-13] MEDS ORDERED: FUROSEMIDE 40 MG/4 ML INJECTABLE VIAL IVPUSH SCH (06:00)
[2020-07-13] MEDS: FUROSEMIDE 40 MG/4 ML INJECTABLE VIAL IVPUSH SCH ×2 (06:32→15:18)
[2020-07-13] MEDS: INSULIN SLIDING SCALE (NOVOLOG) 1 VIAL SQ SCH ×4 (06:49→21:07)
[2020-07-13 08:09] LABS: BASO % 0.6 % (0-2.0); EOS % 0.3 % (0-4.5); HEMOGLOBIN 12.1 GM/dL (11.7-16.9); LYMPH % 5.5 % (8-40); MCH 33.9 pg (25.7-33.7); MCHC 34.5 g/dl (32.0-35.9); MEAN CELL VOLUME 98.3 fl (80-96); MEAN PLT VOLUME 8.4 fl (7.5-11.1); MONO % 5.5 % (3.8-10.2); NEUT % 88.1 % (42.8-82.8); PLATELET COUNT 134 K/MM3 (134-434); RBC 3.57 M/mm3 (4.00-5.60); RDW 15.4 % (11.9-15.9); WHITE BLOOD COUNT 6.3 K/mm3 (4.0-10.0)
[2020-07-13 08:26] LABS: POTASSIUM 4.3 mmol/L (3.5-5.1)
[2020-07-13 08:40] LABS: ALBUMIN 2.9 g/dl (3.4-5.0); BLOOD UREA NITROGEN 34.9 mg/dL (7-18); CALCIUM 9.6 mg/dL (8.5-10.1)
[2020-07-13 08:41] LABS: MAGNESIUM 2.2 mg/dL (1.8-2.4)
[2020-07-13 08:45] LABS: TOT PROT 6.4 g/dl (6.4-8.2)
[2020-07-13] MEDS ORDERED: cefTRIAXone SODIUM 1 GM VIAL ONE (10:54)
[2020-07-13] MEDS ORDERED: DEXTROSE 5%-WATER - 50 ML IVPB ONE (10:55)
[2020-07-13] MEDS ORDERED: PIPERACILLIN/TAZOB 3.375 GM 3.375 GM in DEXTROSE 5%-WATER - 50 ML IVPB SCH (11:00)
[2020-07-13] MEDS: PANTOPRAZOLE 40 MG TABLET PO SCH (11:08)
[2020-07-13] MEDS: TAMSULOSIN HCL 0.4 MG CAP PO SCH (11:09)
[2020-07-13] MEDS: GABAPENTIN 100 MG CAPSULE PO SCH (11:09)
[2020-07-13] MEDS: RIVAROXABAN 20 MG TABLET PO SCH (11:09)
[2020-07-13] MEDS: DEXAMETHASONE 4 MG TABLET (FP) PO SCH ×2 (11:09→21:07)
[2020-07-13] MEDS: MULTIVITAMINS (DAILY MVI) TABLET (FP) PO SCH (11:09)
[2020-07-13] MEDS: CEFTRIAXONE 1 GM in DEXTROSE 5%-WATER - 50 ML IVPB SCH (11:10)
[2020-07-13] MEDS: LIDOCAINE 5% TOPICAL PATCH TP SCH (11:12)
[2020-07-13] MEDS: AZITHROMYCIN IVPB 500 MG/250 ML BAG IVPB SCH (11:13)
[2020-07-13] MEDS: metoPROLOL SUCCINATE 25 MG TAB.SR.24H (FP) PO SCH (11:17)
[2020-07-13] MEDS: LOSARTAN POTASSIUM 50 MG TABLET PO SCH (11:17)
[2020-07-13 19:07] LABS: HEP B CORE AB, TOT Negative (Negative)
[2020-07-13] MEDS: MELATONIN 5 MG TABLETS PO SCH (21:07)
[2020-07-13] MEDS: GABAPENTIN 300 MG CAPSULE PO SCH (21:07)
[2020-07-13] MEDS: LIDOCAINE PATCH REMOVAL MC SCH (21:07)
[2020-07-14] MEDS: FUROSEMIDE 40 MG/4 ML INJECTABLE VIAL IVPUSH SCH (05:56)
[2020-07-14] MEDS: INSULIN SLIDING SCALE (NOVOLOG) 1 VIAL SQ SCH ×4 (06:11→21:24)
[2020-07-14 07:05] LABS: BASO % 0.8 % (0-2.0); EOS % 0.5 % (0-4.5); HEMATOCRIT 35.5 % (35.4-49); HEMOGLOBIN 12.2 GM/dL (11.7-16.9); LYMPH % 6.1 % (8-40); MCH 33.8 pg (25.7-33.7); MCHC 34.5 g/dl (32.0-35.9); MEAN CELL VOLUME 97.9 fl (80-96); MEAN PLT VOLUME 8.4 fl (7.5-11.1); MONO % 7.6 % (3.8-10.2); PLATELET COUNT 135 K/MM3 (134-434); RBC 3.63 M/mm3 (4.00-5.60); RDW 15.8 % (11.9-15.9); WHITE BLOOD COUNT 6.3 K/mm3 (4.0-10.0)
[2020-07-14 07:53] LABS: POTASSIUM 3.9 mmol/L (3.5-5.1)
[2020-07-14 08:38] LABS: BLOOD UREA NITROGEN 36.5 mg/dL (7-18); CALCIUM 9.3 mg/dL (8.5-10.1)
[2020-07-14 08:39] LABS: MAGNESIUM 2.1 mg/dL (1.8-2.4)
[2020-07-14 08:43] LABS: TOT PROT 6.4 g/dl (6.4-8.2)
[2020-07-14 08:44] LABS: CREATININE 0.9 mg/dL (0.55-1.3)
[2020-07-14] MEDS: TAMSULOSIN HCL 0.4 MG CAP PO SCH (10:19)
[2020-07-14] MEDS: LOSARTAN POTASSIUM 50 MG TABLET PO SCH (10:25)
[2020-07-14] MEDS: RIVAROXABAN 20 MG TABLET PO SCH (10:25)
[2020-07-14] MEDS: PANTOPRAZOLE 40 MG TABLET PO SCH (10:25)
[2020-07-14] MEDS: GABAPENTIN 100 MG CAPSULE PO SCH (10:25)
[2020-07-14] MEDS: MULTIVITAMINS (DAILY MVI) TABLET (FP) PO SCH (10:25)
[2020-07-14] MEDS: DEXAMETHASONE 4 MG TABLET (FP) PO SCH ×2 (10:25→21:23)
[2020-07-14] MEDS: LIDOCAINE 5% TOPICAL PATCH TP SCH (10:25)
[2020-07-14] MEDS: metoPROLOL SUCCINATE 25 MG TAB.SR.24H (FP) PO SCH (10:25)
[2020-07-14] MEDS: LIDOCAINE PATCH REMOVAL MC SCH (21:23)
[2020-07-14] MEDS: MELATONIN 5 MG TABLETS PO SCH (21:23)
[2020-07-14] MEDS: GABAPENTIN 300 MG CAPSULE PO SCH (21:23)
[2020-07-15] MEDS: INSULIN SLIDING SCALE (NOVOLOG) 1 VIAL SQ SCH ×4 (06:03→21:16)
[2020-07-15 07:50] LABS: BASO % 0.2 % (0-2.0); EOS % 0.1 % (0-4.5); HEMATOCRIT 34.8 % (35.4-49); LYMPH % 4.6 % (8-40); MCHC 34.4 g/dl (32.0-35.9); MEAN CELL VOLUME 98.7 fl (80-96); MEAN PLT VOLUME 8.8 fl (7.5-11.1); MONO % 6.9 % (3.8-10.2); NEUT % 88.2 % (42.8-82.8); PLATELET COUNT 116 K/MM3 (134-434); RBC 3.53 M/mm3 (4.00-5.60); RDW 15.6 % (11.9-15.9); WHITE BLOOD COUNT 6.2 K/mm3 (4.0-10.0)
[2020-07-15 07:56] LABS: POTASSIUM 4.3 mmol/L (3.5-5.1)
[2020-07-15 08:01] LABS: CALCIUM 9.4 mg/dL (8.5-10.1); MAGNESIUM 2.2 mg/dL (1.8-2.4)
[2020-07-15 08:05] LABS: TOT PROT 6.2 g/dl (6.4-8.2)
[2020-07-15] MEDS: GABAPENTIN 100 MG CAPSULE PO SCH (10:15)
[2020-07-15] MEDS: FUROSEMIDE 40 MG TABLET (FP) PO SCH (10:16)
[2020-07-15] MEDS: LOSARTAN POTASSIUM 50 MG TABLET PO SCH (10:16)
[2020-07-15] MEDS: PANTOPRAZOLE 40 MG TABLET PO SCH (10:16)
[2020-07-15] MEDS: MULTIVITAMINS (DAILY MVI) TABLET (FP) PO SCH (10:16)
[2020-07-15] MEDS: LIDOCAINE 5% TOPICAL PATCH TP SCH (10:16)
[2020-07-15] MEDS: DEXAMETHASONE 4 MG TABLET (FP) PO SCH ×2 (10:16→21:15)
[2020-07-15] MEDS: TAMSULOSIN HCL 0.4 MG CAP PO SCH (10:16)
[2020-07-15] MEDS: RIVAROXABAN 20 MG TABLET PO SCH (10:17)
[2020-07-15] MEDS: metoPROLOL SUCCINATE 25 MG TAB.SR.24H (FP) PO SCH (10:17)
[2020-07-15] MEDS: MELATONIN 5 MG TABLETS PO SCH (21:15)
[2020-07-15] MEDS: GABAPENTIN 300 MG CAPSULE PO SCH (21:15)
[2020-07-15] MEDS: LIDOCAINE PATCH REMOVAL MC SCH (21:15)
[2020-07-16] MEDS: INSULIN SLIDING SCALE (NOVOLOG) 1 VIAL SQ SCH ×4 (06:17→22:41)
[2020-07-16] MEDS ORDERED: PT OWN MED DRAWER 7, Y5N ONE (09:06)
[2020-07-16] MEDS: MULTIVITAMINS (DAILY MVI) TABLET (FP) PO SCH (09:56)
[2020-07-16] MEDS: TAMSULOSIN HCL 0.4 MG CAP PO SCH (09:56)
[2020-07-16] MEDS: PANTOPRAZOLE 40 MG TABLET PO SCH (09:56)
[2020-07-16] MEDS: DEXAMETHASONE 4 MG TABLET (FP) PO SCH ×2 (09:56→22:41)
[2020-07-16] MEDS: FUROSEMIDE 40 MG TABLET (FP) PO SCH (09:56)
[2020-07-16] MEDS: LIDOCAINE 5% TOPICAL PATCH TP SCH (09:56)
[2020-07-16] MEDS: GABAPENTIN 100 MG CAPSULE PO SCH (09:57)
[2020-07-16] MEDS: RIVAROXABAN 20 MG TABLET PO SCH (09:57)
[2020-07-16] MEDS: LOSARTAN POTASSIUM 50 MG TABLET PO SCH (09:58)
[2020-07-16] MEDS: metoPROLOL SUCCINATE 25 MG TAB.SR.24H (FP) PO SCH (09:58)
[2020-07-16] MEDS ORDERED: INSULIN (NOVOLOG) ASPART 100 UNITS/ML 10ML VIAL ONE (12:26)
[2020-07-16 15:18] LABS: BASO % 0.4 % (0-2.0); EOS % 0.4 % (0-4.5); HEMATOCRIT 34.6 % (35.4-49); HEMOGLOBIN 11.8 GM/dL (11.7-16.9); LYMPH % 2.7 % (8-40); MCH 33.7 pg (25.7-33.7); MEAN CELL VOLUME 99.1 fl (80-96); MEAN PLT VOLUME 8.6 fl (7.5-11.1); NEUT % 91.5 % (42.8-82.8); PLATELET COUNT 108 K/MM3 (134-434); RBC 3.49 M/mm3 (4.00-5.60); RDW 15.9 % (11.9-15.9); WHITE BLOOD COUNT 7.4 K/mm3 (4.0-10.0)
[2020-07-16 17:25] LABS: ANISOCYTOSIS 1+; MACROCYTOSIS 0; PLATELET ESTIMATE DECREASED
[2020-07-16 17:26] LABS: POTASSIUM 4.4 mmol/L (3.5-5.1)
[2020-07-16 17:28] LABS: CALCIUM 9.3 mg/dL (8.5-10.1)
[2020-07-16 17:29] LABS: ALBUMIN 3.1 g/dl (3.4-5.0); BLOOD UREA NITROGEN 46.1 mg/dL (7-18); MAGNESIUM 2.3 mg/dL (1.8-2.4)
[2020-07-16 17:32] LABS: CREATININE 1.2 mg/dL (0.55-1.3)
[2020-07-16 17:34] LABS: BILIRUBIN,TOTAL 0.7 mg/dL (0.2-1); TOT PROT 6.4 g/dl (6.4-8.2)
[2020-07-16 19:51] LABS: BASO % 0.3 % (0-2.0); EOS % 0.3 % (0-4.5); HEMATOCRIT 35.4 % (35.4-49); LYMPH % 6.3 % (8-40); MCH 33.7 pg (25.7-33.7); MCHC 33.9 g/dl (32.0-35.9); MEAN CELL VOLUME 99.3 fl (80-96); MEAN PLT VOLUME 8.6 fl (7.5-11.1); MONO % 6.5 % (3.8-10.2); NEUT % 86.6 % (42.8-82.8); PLATELET COUNT 124 K/MM3 (134-434); RBC 3.57 M/mm3 (4.00-5.60); WHITE BLOOD COUNT 7.6 K/mm3 (4.0-10.0)
[2020-07-16 20:07] LABS: POTASSIUM 4.4 mmol/L (3.5-5.1)
[2020-07-16 20:09] LABS: ALBUMIN 3.2 g/dl (3.4-5.0); CALCIUM 9.4 mg/dL (8.5-10.1); MAGNESIUM 2.2 mg/dL (1.8-2.4)
[2020-07-16 20:12] LABS: CREATININE 1.5 mg/dL (0.55-1.3)
[2020-07-16 20:14] LABS: BILIRUBIN,TOTAL 0.6 mg/dL (0.2-1); TOT PROT 6.6 g/dl (6.4-8.2)
[2020-07-16] MEDS: LIDOCAINE PATCH REMOVAL MC SCH (22:41)
[2020-07-16] MEDS: MELATONIN 5 MG TABLETS PO SCH (22:41)
[2020-07-16] MEDS: GABAPENTIN 300 MG CAPSULE PO SCH (22:41)
[2020-07-17] MEDS: INSULIN SLIDING SCALE (NOVOLOG) 1 VIAL SQ SCH ×2 (06:23→12:28)
[2020-07-17 08:00] LABS: BASO % 0.4 % (0-2.0); EOS % 0.3 % (0-4.5); HEMATOCRIT 36.1 % (35.4-49); HEMOGLOBIN 12.3 GM/dL (11.7-16.9); MCH 33.7 pg (25.7-33.7); MCHC 34.1 g/dl (32.0-35.9); MEAN CELL VOLUME 98.8 fl (80-96); MEAN PLT VOLUME 8.4 fl (7.5-11.1); NEUT % 89.3 % (42.8-82.8); PLATELET COUNT 124 K/MM3 (134-434); RBC 3.65 M/mm3 (4.00-5.60); RDW 16.1 % (11.9-15.9); WHITE BLOOD COUNT 8.4 K/mm3 (4.0-10.0)
[2020-07-17 08:34] LABS: POTASSIUM 4.4 mmol/L (3.5-5.1)
[2020-07-17 08:45] LABS: ALBUMIN 2.9 g/dl (3.4-5.0); BLOOD UREA NITROGEN 47.5 mg/dL (7-18); CALCIUM 9.3 mg/dL (8.5-10.1)
[2020-07-17 08:46] LABS: MAGNESIUM 2.3 mg/dL (1.8-2.4)
[2020-07-17] MEDS: TAMSULOSIN HCL 0.4 MG CAP PO SCH (08:47)
[2020-07-17 08:48] LABS: BILIRUBIN,TOTAL 1.4 mg/dL (0.2-1)
[2020-07-17] MEDS: PANTOPRAZOLE 40 MG TABLET PO SCH (10:27)
[2020-07-17] MEDS: MULTIVITAMINS (DAILY MVI) TABLET (FP) PO SCH (10:27)
[2020-07-17] MEDS: LOSARTAN POTASSIUM 50 MG TABLET PO SCH (10:27)
[2020-07-17] MEDS: GABAPENTIN 100 MG CAPSULE PO SCH (10:27)
[2020-07-17] MEDS: metoPROLOL SUCCINATE 25 MG TAB.SR.24H (FP) PO SCH (10:27)
[2020-07-17] MEDS: DEXAMETHASONE 4 MG TABLET (FP) PO SCH (10:27)
[2020-07-17] MEDS: LIDOCAINE 5% TOPICAL PATCH TP SCH (10:27)
[2020-07-17] MEDS: RIVAROXABAN 20 MG TABLET PO SCH (10:28)
[2020-07-17] MEDS ORDERED: INSULIN (NOVOLOG) ASPART 100 UNITS/ML 10ML VIAL ONE (12:26)
[2020-07-17 16:24] VITALS: BP 121/62; PULSE 82; TEMP 95.5
== END 2020-07-17 17:06 | disposition home or self-care (01) | DRG 291 ==
LOC: JER 15:30 → JERBED 19:55 → J7W 07-11 00:10
PROVIDERS: ADMIT Internal Medicine; ATTEND Nurse Practitioner Family
DX: I11.0 Hypertensive heart disease with heart failure (principal); J96.01 Acute respiratory failure with hypoxia; I50.31 Acute diastolic (congestive) heart failure; B02.30 Zoster ocular disease, unspecified; C34.91 Malignant neoplasm of unspecified part of right bronchus or lung; J98.11 Atelectasis; J44.9 Chronic obstructive pulmonary disease, unspecified; E78.5 Hyperlipidemia, unspecified; Z79.01 Long term (current) use of anticoagulants; I73.9 Peripheral vascular disease, unspecified; I71.4 Abdominal aortic aneurysm, without rupture; R33.9 Retention of urine, unspecified; E87.5 Hyperkalemia; Z99.81 Dependence on supplemental oxygen; I48.0 Paroxysmal atrial fibrillation; T45.1X5A Adverse effect of antineoplastic and immunosuppressive drugs, initial encounter; Z86.718 Personal history of other venous thrombosis and embolism; E11.51 Type 2 diabetes mellitus with diabetic peripheral angiopathy without gangrene
CPT/HCPCS: 36415; 71045-TC-FY; 71275-TC; 76604; 80048; 80053; 81003; 82550; 82962; 83036; 83735; 84100; 84132; 84484; 85025; 85610; 85730; 86704; 86706; 86707; 86708; 86709; 86803; 87086; 87340; 93005; 93010; 93308; 93971; 94010; 97116-GP; 97161-GP; 99285-25; C9803; J2469; Q9967; U0003

== ENCOUNTER 2020-07-24 08:11 | Day surgery (SDC) | payer OTHER, BC ==
[~2020-07-24 08:11] MED LIST: CARBOPLATIN IVPB ONE; DEXAMETHASONE SODIUM PHOSPHATE 10 MG, DIPHENHYDRAMINE 25 MG in SODIUM CHLORIDE 100 ML IVPB ONE; FAMOTIDINE 20 MG/50 ML IVPB 20 MG/50 ML MG IVPB ONE; PACLITAXEL 90 MG in SODIUM CHLORIDE 250 ML IVPB ONE; PALONOSETRON HCL 0.25 MG/5 ML VIAL IVPUSH ONE; SODIUM CHLORIDE IVPB ONE
[2020-07-24] MEDS ORDERED: FAMOTIDINE 20 MG/50 ML IVPB 20 MG/50 ML MG IVPB ONE (09:30)
[2020-07-24] MEDS ORDERED: DEXAMETHASONE SODIUM PHOSPHATE 10 MG, DIPHENHYDRAMINE 25 MG in SODIUM CHLORIDE 100 ML IVPB ONE (09:30)
[2020-07-24] MEDS ORDERED: PALONOSETRON HCL 0.25 MG/5 ML VIAL IVPUSH ONE (09:30)
[2020-07-24] MEDS ORDERED: PACLITAXEL 90 MG in SODIUM CHLORIDE 250 ML IVPB ONE (10:00)
[2020-07-24 10:38] LABS: BASO % 0.4 % (0-2.0); EOS % 1.7 % (0-4.5); HEMATOCRIT 35.5 % (35.4-49); HEMOGLOBIN 12.1 GM/dL (11.7-16.9); LYMPH % 5.1 % (8-40); MCH 34.3 pg (25.7-33.7); MCHC 34.2 g/dl (32.0-35.9); MEAN PLT VOLUME 7.6 fl (7.5-11.1); NEUT % 85.8 % (42.8-82.8); PLATELET COUNT 134 K/MM3 (134-434); RBC 3.54 M/mm3 (4.00-5.60); RDW 16.3 % (11.9-15.9); WHITE BLOOD COUNT 8.5 K/mm3 (4.0-10.0)
[2020-07-24 10:53] LABS: POTASSIUM 3.7 mmol/L (3.5-5.1)
[2020-07-24 10:57] LABS: BLOOD UREA NITROGEN 35.3 mg/dL (7-18); MAGNESIUM 2.2 mg/dL (1.8-2.4)
[2020-07-24] MEDS ORDERED: SODIUM CHLORIDE IVPB ONE (11:00)
[2020-07-24] MEDS ORDERED: CARBOPLATIN IVPB ONE (11:00)
[2020-07-24 11:01] LABS: BILIRUBIN,TOTAL 0.9 mg/dL (0.2-1)
[2020-07-24 11:02] LABS: TOT PROT 6.3 g/dl (6.4-8.2)
[2020-07-24 15:20] VITALS: BP 107/47; PULSE 67; TEMP 97.6
== END 2020-07-24 14:55 | disposition home or self-care (01) ==
LOC: JONCCHEMO 08:11
PROVIDERS: ATTEND Internal Medicine Hematology & Oncology
DX: Z51.11 Encounter for antineoplastic chemotherapy (principal); C34.11 Malignant neoplasm of upper lobe, right bronchus or lung
CPT/HCPCS: 36415; 80053; 83735; 85025; 96367; 96375; 96413; 96417; J2469

== ENCOUNTER 2020-07-31 07:22 | Day surgery (SDC) | payer OTHER, BC ==
[2020-07-31] MEDS ORDERED: PACLITAXEL 90 MG in SODIUM CHLORIDE 250 ML IVPB ONE ×2 (07:45→10:00)
[2020-07-31] MEDS ORDERED: CARBOPLATIN IVPB ONE ×2 (07:45→11:00)
[2020-07-31] MEDS ORDERED: SODIUM CHLORIDE IVPB ONE ×2 (07:45→11:00)
[2020-07-31] MEDS ORDERED: DEXAMETHASONE SODIUM PHOSPHATE 10 MG, DIPHENHYDRAMINE 25 MG in SODIUM CHLORIDE 100 ML IVPB ONE ×2 (07:45→09:30)
[2020-07-31] MEDS ORDERED: PALONOSETRON HCL 0.25 MG/5 ML VIAL IVPUSH ONE ×2 (09:00→09:30)
[2020-07-31] MEDS ORDERED: FAMOTIDINE 20 MG/50 ML IVPB 20 MG/50 ML MG IVPB ONE ×2 (09:00→09:30)
[2020-07-31 10:05] LABS: BASO % 0.3 % (0-2.0); EOS % 1.2 % (0-4.5); HEMATOCRIT 36.6 % (35.4-49); HEMOGLOBIN 12.5 GM/dL (11.7-16.9); MCH 34.3 pg (25.7-33.7); MEAN CELL VOLUME 100.7 fl (80-96); MEAN PLT VOLUME 7.6 fl (7.5-11.1); MONO % 3.9 % (3.8-10.2); NEUT % 88.6 % (42.8-82.8); PLATELET COUNT 145 K/MM3 (134-434); RBC 3.64 M/mm3 (4.00-5.60); RDW 16.4 % (11.9-15.9); WHITE BLOOD COUNT 6.6 K/mm3 (4.0-10.0)
[2020-07-31 10:38] LABS: POTASSIUM 4.2 mmol/L (3.5-5.1)
[2020-07-31 10:39] LABS: ALBUMIN 3.1 g/dl (3.4-5.0); BLOOD UREA NITROGEN 33.2 mg/dL (7-18); CALCIUM 8.8 mg/dL (8.5-10.1)
[2020-07-31 10:43] LABS: CREATININE 1.1 mg/dL (0.55-1.3)
[2020-07-31 10:45] LABS: BILIRUBIN,TOTAL 0.6 mg/dL (0.2-1); TOT PROT 6.2 g/dl (6.4-8.2)
[2020-07-31 15:54] VITALS: TEMP 97.6
[2020-07-31 16:03] VITALS: BP 101/56; PULSE 70
== END 2020-07-31 14:40 | disposition home or self-care (01) ==
LOC: JONCCHEMO 07:22
PROVIDERS: ATTEND Internal Medicine Hematology & Oncology
DX: Z51.11 Encounter for antineoplastic chemotherapy (principal); C34.11 Malignant neoplasm of upper lobe, right bronchus or lung
CPT/HCPCS: 36415; 80053; 85025; 96367; 96375; 96413; 96417; J2469

== ENCOUNTER 2020-08-07 07:01 | Day surgery (SDC) | payer OTHER, BC ==
[2020-08-07] MEDS ORDERED: DEXAMETHASONE SODIUM PHOSPHATE 10 MG, DIPHENHYDRAMINE 25 MG in SODIUM CHLORIDE 100 ML IVPB ONE (09:30)
[2020-08-07] MEDS ORDERED: PALONOSETRON HCL 0.25 MG/5 ML VIAL IVPUSH ONE (09:30)
[2020-08-07] MEDS ORDERED: FAMOTIDINE 20 MG/50 ML IVPB 20 MG/50 ML MG IVPB ONE (09:30)
[2020-08-07 09:57] LABS: BASO % 0.9 % (0-2.0); EOS % 1.2 % (0-4.5); HEMOGLOBIN 11.5 GM/dL (11.7-16.9); LYMPH % 10.7 % (8-40); MCHC 33.7 g/dl (32.0-35.9); MONO % 6.3 % (3.8-10.2); NEUT % 80.9 % (42.8-82.8); PLATELET COUNT 168 K/MM3 (134-434); RBC 3.37 M/mm3 (4.00-5.60); RDW 16.4 % (11.9-15.9); WHITE BLOOD COUNT 3.3 K/mm3 (4.0-10.0)
[2020-08-07] MEDS ORDERED: PACLITAXEL 90 MG in SODIUM CHLORIDE 250 ML IVPB ONE (10:00)
[2020-08-07 10:19] LABS: POTASSIUM 4.3 mmol/L (3.5-5.1)
[2020-08-07 10:23] LABS: CALCIUM 8.9 mg/dL (8.5-10.1)
[2020-08-07 10:24] LABS: BLOOD UREA NITROGEN 32.2 mg/dL (7-18)
[2020-08-07 10:28] LABS: BILIRUBIN,TOTAL 0.9 mg/dL (0.2-1); TOT PROT 6.1 g/dl (6.4-8.2)
[2020-08-07] MEDS ORDERED: CARBOPLATIN IVPB ONE (10:30)
[2020-08-07] MEDS ORDERED: SODIUM CHLORIDE IVPB ONE (10:30)
[2020-08-07 17:10] VITALS: TEMP 97.7
[2020-08-07] MEDS ORDERED: PORTA CATH FLUSH 10 ML IVPUSH ONE (17:19)
[2020-08-07 17:21] VITALS: BP 110/72; PULSE 72
== END 2020-08-07 15:20 | disposition home or self-care (01) ==
LOC: JONCCHEMO 07:01
PROVIDERS: ATTEND Internal Medicine Hematology & Oncology
DX: Z51.11 Encounter for antineoplastic chemotherapy (principal); C34.11 Malignant neoplasm of upper lobe, right bronchus or lung
CPT/HCPCS: 36415; 80053; 85025; 96367; 96375; 96413; 96417; J2469

== ENCOUNTER 2020-08-14 07:26 | Day surgery (SDC) | payer OTHER, BC ==
[2020-08-14] MEDS ORDERED: DEXAMETHASONE SODIUM PHOSPHATE 10 MG, DIPHENHYDRAMINE 25 MG in SODIUM CHLORIDE 100 ML IVPB ONE (10:00)
[2020-08-14] MEDS ORDERED: FAMOTIDINE 20 MG/50 ML IVPB 20 MG/50 ML MG IVPB ONE (10:00)
[2020-08-14] MEDS ORDERED: PALONOSETRON HCL 0.25 MG/5 ML VIAL IVPUSH ONE (10:00)
[2020-08-14 10:25] LABS: BASO % 0.4 % (0-2.0); EOS % 0.4 % (0-4.5); HEMATOCRIT 34.1 % (35.4-49); HEMOGLOBIN 11.8 GM/dL (11.7-16.9); MCH 34.6 pg (25.7-33.7); MCHC 34.6 g/dl (32.0-35.9); MEAN PLT VOLUME 7.3 fl (7.5-11.1); NEUT % 86.2 % (42.8-82.8); PLATELET COUNT 189 K/MM3 (134-434); RBC 3.41 M/mm3 (4.00-5.60); RDW 16.8 % (11.9-15.9); WHITE BLOOD COUNT 3.7 K/mm3 (4.0-10.0)
[2020-08-14] MEDS ORDERED: PACLITAXEL 90 MG in SODIUM CHLORIDE 250 ML IVPB ONE (10:30)
[2020-08-14 10:43] LABS: POTASSIUM 3.9 mmol/L (3.5-5.1)
[2020-08-14 10:45] LABS: BLOOD UREA NITROGEN 29.9 mg/dL (7-18); MAGNESIUM 2.3 mg/dL (1.8-2.4)
[2020-08-14 10:48] LABS: CREATININE 0.9 mg/dL (0.55-1.3)
[2020-08-14 10:50] LABS: BILIRUBIN,TOTAL 0.4 mg/dL (0.2-1); TOT PROT 6.1 g/dl (6.4-8.2)
[2020-08-14] MEDS ORDERED: CARBOPLATIN IVPB ONE (11:30)
[2020-08-14] MEDS ORDERED: SODIUM CHLORIDE IVPB ONE (11:30)
[2020-08-14 11:56] LABS: ANISOCYTOSIS 1+; MACROCYTOSIS 2+; PLATELET ESTIMATE NORMAL
[2020-08-14 16:08] VITALS: TEMP 98
[2020-08-14 16:10] VITALS: BP 106/49; PULSE 72
== END 2020-08-14 14:50 | disposition home or self-care (01) ==
LOC: JONCCHEMO 07:26
PROVIDERS: ATTEND Internal Medicine Hematology & Oncology
DX: Z51.11 Encounter for antineoplastic chemotherapy (principal); C34.11 Malignant neoplasm of upper lobe, right bronchus or lung
CPT/HCPCS: 36415; 80053; 83036; 83735; 85025; 96367; 96375; 96413; 96417; J2469

== ENCOUNTER 2020-08-21 06:44 | Day surgery (SDC) | payer OTHER, BC ==
[2020-08-21 09:08] LABS: BASO % 0.6 % (0-2.0); EOS % 0.8 % (0-4.5); HEMATOCRIT 34.4 % (35.4-49); HEMOGLOBIN 11.7 GM/dL (11.7-16.9); LYMPH % 9.2 % (8-40); MCH 34.6 pg (25.7-33.7); MCHC 34.1 g/dl (32.0-35.9); MEAN CELL VOLUME 101.3 fl (80-96); MEAN PLT VOLUME 7.2 fl (7.5-11.1); MONO % 9.3 % (3.8-10.2); NEUT % 80.1 % (42.8-82.8); PLATELET COUNT 195 K/MM3 (134-434); RDW 17.2 % (11.9-15.9)
[2020-08-21 09:19] LABS: POTASSIUM 4.5 mmol/L (3.5-5.1)
[2020-08-21 09:22] LABS: BLOOD UREA NITROGEN 32.5 mg/dL (7-18); CALCIUM 9.2 mg/dL (8.5-10.1); MAGNESIUM 2.3 mg/dL (1.8-2.4)
[2020-08-21 09:27] LABS: BILIRUBIN,TOTAL 0.8 mg/dL (0.2-1); TOT PROT 5.9 g/dl (6.4-8.2)
[2020-08-21] MEDS ORDERED: DEXAMETHASONE SODIUM PHOSPHATE 10 MG, DIPHENHYDRAMINE 25 MG in SODIUM CHLORIDE 100 ML IVPB ONE (10:00)
[2020-08-21] MEDS ORDERED: FAMOTIDINE 20 MG/50 ML IVPB 20 MG/50 ML MG IVPB ONE (10:00)
[2020-08-21] MEDS ORDERED: PALONOSETRON HCL 0.25 MG/5 ML VIAL IVPUSH ONE (10:00)
[2020-08-21] MEDS ORDERED: PACLITAXEL 90 MG in SODIUM CHLORIDE 250 ML IVPB ONE (10:30)
[2020-08-21 11:19] VITALS: TEMP 97.6
[2020-08-21] MEDS ORDERED: SODIUM CHLORIDE IVPB ONE (11:30)
[2020-08-21] MEDS ORDERED: CARBOPLATIN IVPB ONE (11:30)
[2020-08-21 13:48] VITALS: BP 120/54; PULSE 70
[2020-08-21 14:49] LABS: ANISOCYTOSIS 1+
[2020-08-21 14:50] LABS: MACROCYTOSIS 1+; OVALOCYTE 1+; PLATELET ESTIMATE ADEQUATE
== END 2020-08-21 13:20 | disposition home or self-care (01) ==
LOC: JONCCHEMO 06:44
PROVIDERS: ATTEND Internal Medicine Hematology & Oncology
DX: Z51.11 Encounter for antineoplastic chemotherapy (principal); C34.11 Malignant neoplasm of upper lobe, right bronchus or lung; C44.92 Squamous cell carcinoma of skin, unspecified
CPT/HCPCS: 36415; 80053; 83735; 85025; 96367; 96375; 96413; 96417; J2469

== ENCOUNTER 2020-12-03 20:59 | Emergency (ER) | payer OTHER, BC ==
[2020-12-03 21:31] VITALS: BP 00/00; PULSE 0; BMI 28.2
== END 2020-12-03 23:29 | disposition expired ==
LOC: JER 20:59
DX: I46.9 Cardiac arrest, cause unspecified (principal)
CPT/HCPCS: 99283-25